=== PATIENT | female | born 1950 | race Two or more races ===

== ENCOUNTER 2016-08-27 12:59 | Day surgery (SDC) | payer OTHER ==
[~2016-08-27] VITALS: Ht 160 cm; Wt 62.2 kg
[2016-08-27] MEDS ORDERED: [UNRECOGNIZED DRUG - REMARK] (14:39)
[2016-08-27 14:40] VITALS: Ht 160 cm; Wt 62.2 kg
[2016-08-27 15:13] VITALS: BP 159/84; PULSE 69; RESP 20
[2016-08-27] MEDS ORDERED: FENTAnyl 50 MCG/ML VIAL ONE (16:00)
[2016-08-27] MEDS ORDERED: MIDAZOLAM 1 MG/ML 2 ML INJ ONE (16:01)
--- NOTE | 2016-08-27 16:08 | GILP ---
DATE OF PROCEDURE: 08/27/2016 PREOPERATIVE DIAGNOSIS: Continued left lower quadrant pain. PROCEDURE DONE: Colonoscopy. POSTOPERATIVE DIAGNOSIS: A few diverticula in the left colon and no diverticulitis. Grade II inter nal and external hemorrhoids. DESCRIPTION OF PROCEDURE: The patient was put in left lateral decubitus after obtaining informed co nsent and 1 mg of IV Versed and 25 mcg of fentanyl were given. Rectal exam done. External hemorrho ids noted. Advanced a pediatric Olympus video colonoscope all the way to cecum. Poor prep made it difficult but lavage was continuously done. Cecum, ascending colon and transverse colon unremarkabl e. Descending sigmoid colon had few diverticula but no diverticulitis. In the rectum, internal hem orrhoids and external hemorrhoids, grade II were noted. Upon removal of scope, patient had no compl ication. PLAN: Will be to observe. If the pain continues, consider CT scan of the abdomen. She will follow up as outpatient in my office. Dictated By: TIM HERNANDEZ Conf#: [id number] DID#: [id number] CC: Anastacio Juarez MD;*EndCC*
[2016-08-27 16:10] VITALS: BP 149/72; PULSE 50; RESP 21
== END 2016-08-27 16:42 | disposition home or self-care (01) ==
LOC: GIL 12:59
PROVIDERS: ATTEND Internal Medicine
DX: K57.90 Diverticulosis of intestine, part unspecified, without perforation or abscess without bleeding (principal); I10 Essential (primary) hypertension
CPT/HCPCS: 45378; J2250; J3010